=== PATIENT | female | born 1975 | race Asian ===

== ENCOUNTER → 2020-07-09 13:05 | Outpatient (CLI) | payer OTHER, SELFPAY ==
--- NOTE | ~2020-07-09 | XR_ITS ---
XR chest 2V DATE: 07/09/2020 13:30 INDICATION: Positive TB skin test TECHNIQUE: PA and lateral views COMPARISON: None FINDINGS: Normal heart size. No hilar or mediastinal enlargement. No pulmonary infiltrate or consolid ation, pleural effusion or pulmonary vascular congestion or pneumothorax. IMPRESSION: No active cardiopulmonary disease Reviewed, dictated and finalized at location A.
== END ==
DX: R76.11 Nonspecific reaction to tuberculin skin test without active tuberculosis (principal)
CPT/HCPCS: 71046

== ENCOUNTER 2023-03-22 00:45 | Day surgery (SDC) | payer OTHER, SELFPAY ==
[2023-03-17 10:42] VITALS: BMI 25.4
--- NOTE | 2023-03-17 11:06 | PC.NURSE ---
Report to the Outpatient Waiting Room, entrance under the green pavilion located off [facility], at 1000 on 03-22-23. Planned Procedure Time: 1200. Time changes happen often and if your time is changed the preop area will call you the afternoon before. - You and your visitor will be asked to self-screen and do not enter if you have any COVID symptoms. - A mask is optional within the hospital at this time. Patients may have clear liquids (water, carbonated beverages, clear teas, apple juice) until 3 hours prior to surgery with a maximum of 20 ounces. - No food from midnight until time of surgery - Infants may have breast milk until 4 hours before surgery, infant formula 6 hours prior to surgery. - Children will be allowed to drink immediately following surgery. If applicable, please bring a bottle or sippy cup to assist with drinking. Juice, water, soda, and popsicles are readily available. For infants on formula, please bring formula the day of surgery. Pacifiers are allowed. Take the following medications with a SIP of water the morning of surgery: None DO NOT STOP ANY OF YOUR OTHER PRESCRIPTION MEDICATIONS PRIOR TO SURGERY ?EXCEPT THE FOLLOWING Medications to discontinue per physician: vitamins and supplements Date to take last dose: 03-19-23 Please no make-up, nail macedonian, hairspray, perfume, deodorant, or body powder the day of surgery. No jewelry (including any body piercings) or valuables the day of surgery, leave them at home. Please take a shower or bath the night before, or the morning of, surgery with an antibacterial soap. Wear comfortable, loose fitting clothing. Children are encouraged to wear pajamas. - Jewelry must be removed prior to entering the operating room. Rings and piercings that are not removed may be cut off. - The hospital will not accept responsibility for valuables. - Please leave all valuables, including medications, at home the day of surgery. If you are going home after surgery, a licensed courtesy car driver must drive you home. - NO public transportation without another adult if you receive anesthesia. - We recommend that an adult stay with you for 24 hours following discharge. - We also recommend that you do not drive, make important decision, drink alcoholic beverages, or take any drugs that were not prescribed by your health care provider for at least 24 hours after your discharge time. For Pediatric surgeries, we recommend two adults accompany the child home. Follow any additional instructions given to you from your surgeon. If you or anyone in your household have experienced Covid symptoms in the past week, please notify your surgeon or the nurse liaison at the phone number below for possible testing. Telephone instructions given to Leatha Isaacs and asked if any additional questions and then verbalized understanding. Patient advised to call surgeon office or pre surgery nurse liaison [phone] if any additional questions.
--- NOTE | 2023-03-22 07:04 | WPDHPUPDATE1 ---
History and Physical Update Update Date/Time: 03/22/23 07:04 History and Physical has been reviewed, including an updated exam of the patient. There are NO changes in the patient's condition. Risks, benefits, and alternatives have been discussed and questions answered. Patient agrees to proceed with Hysteroscopy, D&C, with possible polypectomy/myomectomy.
[2023-03-22 10:07] VITALS: BP 152/95; PULSE 79; RESP 20; TEMP 36.8; O2SAT 100
[2023-03-22] MEDS: ACETAMINOPHEN 500 MG TABLET 1000 MG PO (10:23)
[2023-03-22] MEDS: LACTATED RINGERS 1,000 ML 30 ML IV CONT (10:23)
--- NOTE | 2023-03-22 11:02 | WPDANESEPPF ---
Anes - Initial Pre Proc Eval Procedure: Operation Date: 03/22/23 12:00 Proposed Procedures p Hysteroscopy Dilation and Curettage - Kimberly Rosas MD Date/Time: 03/22/23 11:02 Surgeon: Kimberly Rosas MD Pre Op Diagnosis: Abnormal Uterine Bleeding Patient Data Age: 47 Gender: F Height: 1.65 m Weight: 69.4 kg Allergies Allergy/AdvReac Type Severity Reaction Status Date / Time seafood Allergy Mild Itching Uncoded 03/22/23 10:05 Home Medications Medication Instructions Recorded Confirmed Type cholecalciferol (vitamin D3) 50 50 mcg PO DAILY 03/17/23 03/22/23 History mcg (2,000 unit) tablet (Vitamin D3) omega 3-dha 120 mg-epa 180 mg-fish 1 cap PO DAILY 03/17/23 03/22/23 History oil 600 mg capsule ([place]-3) vitamin E 200 unit tablet 180 mg PO DAILY 03/17/23 03/22/23 History Patient hx anesthesia problems: none Family hx anesthesia problems: none Results Review: All pre-operative results and documents have been reviewed as part of the pre-operative evaluation. [facility] Past Medical History Medical History Abnormal Pap smear of cervix Breast asymmetry left Surgical History Surgical History H/O colposcopy with cervical biopsy normal per pt-nm Family History Family History Mother Diabetes mellitus Heart disease Hypertension Sibling Asthma Cerebrovascular accident Social History Social History Smoking status: Never smoker Second hand tobacco smoke exposure: No Alcohol intake: current Alcohol use details: occasionally a glass of wine Substance use: never Substance use type: does not use Lack of Transportation: No Lack of Food: Never True Current Housing: I Have Housing Concerned About Future Housing: No Difficulty Paying Gas/Electric Bills: No Difficulty Paying for Meds: No Currently Unemployed: No Education: Associate Degree Difficulty w/ Childcare or Family Care: No Living arrangements: with family Occupation/Education: occupation Gender identity (if verbalized by the patient): Female Sexual Orientation (if Verbalized by the Patient): Straight or Heterosexual Spiritual care concerns: No Anes - Eval Final PreProcedure Day of Procedure 03/22/23 11:02 Patient weight: normal Heart: regular rate and rhythm Lungs: clear to auscultation Airway: Mallampati scale class II Neurological: alert and oriented Last oral intake: >/= 8 hours ASA classification: II Emergent: no Anesthesia type and monitoring: general GIVS and standard monitoring Results Review: All pre-operative results and documents have been reviewed as part of the pre-operative evaluation. Informed Consent: The patient's anesthetic plan and its attendant risks and benefits were discussed with the patient/family/POA. Questions were solicited and answers provided to the satisfaction of the patient/family/POA.
[2023-03-22] MEDS: KETOROLAC 30 MG/ML VIAL (*BKC) IV PUSH (11:53)
--- NOTE | 2023-03-22 12:06 | P.OP_ITS ---
Procedure Note - Detailed Date of Procedure 03/22/23 Pre-op Diagnosis Abnormal Uterine Bleeding Post-op Diagnosis Same Procedure Performed Hysteroscopy with D&C Surgeon Kimberly Rosas MD Anesthesia MAC Findings Uterus with diffusely thickened endometrium throughout the uterus; bilateral tubal ostia visualized. Good hemostasis at end of case. Description of Procedure Anastasia was taken to the operating room where she was placed under sedation without complications. She was then prepped and draped in the usual sterile fashion in the dorsal lithotomy position with her legs in low Vik stirrups. A time-out was performed and no perioperative antibiotics were indicated. A bivalve speculum was placed within the vagina where the cervix was easily identified. The anterior lip of the cervix was grasped with a single-tooth tenaculum. The cervix was then serially dilated to allow for the hysteroscope. The hysteroscope was advanced into the uterine cavity with the above findings noted. A curettage was then performed until a good uterine cry was felt thr oughout the uterus. The hysteroscope was once again advanced into the uterine cavity where it was noted to be normal. Good hemostasis was noted. All instruments were removed from the vagina. Sponge, lap, instrument, and needle counts were correct at the end of the procedure. Patient was awoken from anesthesia and taken to recovery with plans of same-day discharge home. Estimated Blood Loss 10 IV Fluids 800 (Fluid deficit: 0cc) Pathology Yes (endometrial curettings) Complications No immediate complications Condition Stable Disposition Same day [facility] Billing Surgery - Charge Forward: Surgery Billing
[2023-03-22 12:15] VITALS: BP 117/75; PULSE 78; RESP 14; O2SAT 100
[2023-03-22 12:40] VITALS: BP 123/81; PULSE 76; RESP 16
[2023-03-22 13:00] VITALS: BP 112/85; PULSE 75; RESP 16
== END 2023-03-22 13:15 | disposition home or self-care (01) ==
PROVIDERS: PCP Family Medicine; Visit Provider Obstetrics & Gynecology
PROC: 0U5B8ZZ Destruction of Endometrium, Via Natural or Artificial Opening Endoscopic (ICD-10-PCS; CPT 58563; principal; 2023-03-22 12:00)
DX: N93.9 Abnormal uterine and vaginal bleeding, unspecified (principal)
CPT/HCPCS: 58558; 88305; A9270; J1885; J2250; J2405; J2704; J3010; J7120

== ENCOUNTER 2025-03-08 09:18 | Outpatient (CLI) | payer OTHER, SELFPAY ==
--- NOTE | ~2025-03-08 | MMUS_ITS ---
EXAMINATION: MM diagnostic mouna BI w chris, US breast LT limited HISTORY: Bilateral breast lumps TECHNIQUE: 3-D tomosynthesis images of the breasts were performed and synthetic 2-D images were gener ated. CAD analysis was submitted and interpreted. High resolution limited left breast ultrasound was performed. COMPARISON: 06/29/2024 BREAST PARENCHYMAL COMPOSITION:Dense: The breasts are heterogeneously dense, which may obscure small masses. FINDINGS: MAMMOGRAPHIC FINDINGS: There is a 10 mm low-density mass at the upper, central left breast. No suspicious parenchymal abnorm ality seen in the right breast. A few benign calcifications are present. No suspicious microvascular calcification. ULTRASOUND: There is a 10 mm simple cyst the left breast 12:00 position, 5-6 cm from the nipple. There is an meredith tional 6 mm simple cyst in this region as well. There is a third simple cyst in this region also shashank uring 10 mm in diameter. No solid or otherwise suspicious lesions seen in the region scanned. IMPRESSION: No evidence for malignancy. Simple breast cysts, as detailed above. BI-RADS Category 2: Benign finding(s). Reviewed, dictated and finalized at location M. IMPRESSION: No evidence for malignancy. Simple breast cysts, as detailed above. BI-RADS Category 2: Benign finding(s).
== END 2025-03-08 09:19 | disposition home or self-care (01) ==
LOC: CHSIMG 09:21
PROVIDERS: PCP Family Medicine; Visit Provider Obstetrics & Gynecology
DX: N63.14 Unspecified lump in the right breast, lower inner quadrant (principal)
CPT/HCPCS: 76642; 77062; 77066; G0279